=== PATIENT | male | born 1980 | race American Indian/Alaskan Native ===

== ENCOUNTER 2016-12-08 12:42 | Emergency (ER) | payer MEDICAID, OTHER ==
[2016-12-08 13:28] VITALS: BP 121/74
== END 2016-12-08 17:18 | disposition left against medical advice (07) ==
LOC: ED 12:42
DX: M54.9 Dorsalgia, unspecified (principal); Z53.21 Procedure and treatment not carried out due to patient leaving prior to being seen by health care provider

== ENCOUNTER 2017-11-28 16:53 | Emergency (ER) | payer SELFPAY | END 2017-11-28 17:10 | disposition left against medical advice (07) | LOC: ED 16:53 | DX: R52 Pain, unspecified (principal); Z53.21 Procedure and treatment not carried out due to patient leaving prior to being seen by health care provider ==